=== PATIENT | male | born 1995 | race Caucasian/White ===

== ENCOUNTER 2016-12-06 14:21 | Emergency (ER) | payer SELFPAY ==
--- NOTE | ~2016-12-06 | CR63 ---
[facility] A Service of [facility] & [facility] RADIOLOGY TEXT RESULTS PATIENT: ANUM JACQUES LOCATION: [place] : [birth year] UNIT #: [id number] AGE: [address]: David Celaya SEX: M ORDER DR: [id number] [facility] [address] [place], [place] [address] [id number] E MR#: [id number] #: [id number] NAME: ANUM JACQUES : 1995 SEX: M STUDY DATE/TIME: 12/06/2016 15:06 UNIT: [facility] ROOM: STUDY DESCRIPTION: CR Chest 2 View Attending Physician: David Celaya Ordering Physician: Ed Reinier Zuleta M.D. [facility] REPORT This report is preliminary unless electronic signature is present EXAM Chest x-ray, 12/06/2016. HISTORY Cough, congestion and chest pain for 2 weeks. FINDINGS PA and lateral examination of the chest upright shows a good expansion of the parenchyma with a normal distribution of the pulmonary vascularity. There is no indication of congestion, effusion, infiltrate, tumor, or nodular density. The pleural reflections and diaphragmatic contours are normal. The cardiac silhouette and mediastinal anatomy is within normal limits. IMPRESSION Normal chest. Dictated by... Hemanth Dexter Jr., M.D. THIS IS AN ELECTRONICALLY VERIFIED REPORT Hemanth Dexter Jr., M.D. at 12/07/2016 6:10 AM ASHLEY/naz TD: 12/06/2016 16:44 JOB #: [id number] MEDICAL IMAGING REPORT Page 1 of 1 COPY
[~2016-12-06 14:21] MED LIST: ADVAIR 1001 DISK W/D PO; ALBUTEROL INHALER; ALBUTEROL17 GM INH; ATIVAN PO; BENTYL20 M1 PO; IBUPROFEN600 MG PO; NO MEDICATIONS; OMNICEF PO; PHENERGAN25 M1 PO; SINGULAIR PO; ZYRTEC PO; ZYRTEC10 M2 PO
[2016-12-06 14:55] LABS: INFLUENZA A NEG (NEG)
[2016-12-06 14:56] LABS: INFLUENZA B NEG (NEG)
== END 2016-12-06 16:20 | disposition home or self-care (01) ==
LOC: CFTX 14:21
PROVIDERS: Nurse Practitioner
DX: J04.0 Acute laryngitis (principal); J45.909 Unspecified asthma, uncomplicated; Z79.899 Other long term (current) drug therapy
CPT/HCPCS: 71020; 87651; 87804; 94640; 99283

== ENCOUNTER 2017-04-12 12:40 | Emergency (ER) | payer OTHER ==
[~2017-04-12] VITALS: Ht 185.4 cm; Wt 141.1 kg
--- NOTE | ~2017-04-12 | CR2 ---
[facility] [place] [facility]Y TEXT RESULTS PATIENT: KG JACQUES LOCATION: [facility] : [birth year] UNIT #: [id number] AGE: [address]: Brianna Bocanegra MD SEX: M ORDER DR: [id number] [facility] [address] [place], [place] [address] [id number] E MR#: [id number] Acc #: [id number] NAME: KG JACQUES : 1995 SEX: M STUDY DATE/TIME: 04/12/2017 14:33 UNIT: [facility] ROOM: STUDY DESCRIPTION: CR Abdomen Acute Series Attending Physician: Brianna Bocanegra M.D. Ordering Physician: Ed Reinier Zuleta M.D. Primary Care Physician: [facility]. MEDICAL IMAGING REPORT This report is preliminary unless electronic signature is present EXAMINATION Acute abdominal series. DATE 04/12/2017 at 14:33. HISTORY 22-year-old male complains of abdominal pain for 1 day. No known injury. COMPARISON PA and lateral chest, 12/26/2016. CT of abdomen and pelvis with contrast, 09/07/2014. FINDINGS Clear lungs. Normal heart size. No pleural effusion or pneumothorax. Nonspecific but nonobstructive appearing bowel gas pattern. No pneumatosis, free air or abnormal soft tissue calcifications are identified. IMPRESSION Negative acute abdominal series. Dictated by... Vanita Gray M.D. THIS IS AN ELECTRONICALLY VERIFIED REPORT Vanita Gray M.D. at 04/13/2017 2:03 PM JENIFFER/rogers TD: 04/12/2017 21:20 JOB #: [id number] [facility] A Service [facility] RADIOLOGY TEXT RESULTS PATIENT: KG JACQUES LOCATION: [facility] : [birth year] UNIT #: [id number] AGE: [address]: Brianna Bocanegra MD SEX: M ORDER DR: MEDICAL IMAGING REPORT Page 1 of 1 COPY
== END 2017-04-12 15:30 | disposition home or self-care (01) ==
LOC: CED 12:40
DX: K42.9 Umbilical hernia without obstruction or gangrene (principal); J45.909 Unspecified asthma, uncomplicated; Z79.899 Other long term (current) drug therapy
CPT/HCPCS: 74022; 99284